=== PATIENT | female | born 1980 | race Caucasian/White ===

== ENCOUNTER 2022-06-12 07:42 | Outpatient (CLI) | payer BC, SELFPAY ==
--- NOTE | ~2022-06-12 | MM_ITS ---
EXAMINATION: MM screening anne BI w chicho HISTORY: Screening TECHNIQUE: Craniocaudal and mediolateral oblique 3-D tomosynthesis images were obtained and synthetic 2-D images were generated. CAD analysis was submitted and interpreted. COMPARISON: No prior mammogram is available for comparison at this institution. BREAST PARENCHYMAL COMPOSITION: The breasts are heterogeneously dense, which may obscure small masses . FINDINGS: There is no evidence of suspicious mass, calcification, or architectural distortion to sugg est malignancy in either breast. There has been no suspicious interval change. IMPRESSION: 1. No mammographic evidence of malignancy. 2. Recommend routine screening mammography in one year. BI-RADS Category 1: Negative Reviewed, dictated and finalized at location A.
== END 2022-06-12 07:43 | disposition home or self-care (01) ==
LOC: ANHIMG 07:44
PROVIDERS: PCP Family Medicine Sports Medicine; Visit Provider Obstetrics & Gynecology
DX: Z12.31 Encounter for screening mammogram for malignant neoplasm of breast (principal)
CPT/HCPCS: 77063; 77067

== ENCOUNTER 2022-11-30 12:50 | Emergency (ER) | payer BC, SELFPAY ==
[2022-11-30 13:00] VITALS: BP 133/78; PULSE 75; RESP 16; TEMP 36.5; O2SAT 100
--- NOTE | 2022-11-30 13:08 | ED.ALLEREA ---
HPI - Allergic Reaction General Chief complaint: Allergic Reaction Stated complaint: BEE STINGS Time Seen by Provider: 11/30/22 13:05 Source: patient Mode of arrival: ambulatory Limitations: no limitations History of Present Illness HPI narrative: 42 y/o female presented for c/o red, warm swollen and itchy insect sting on right inner knee x1 week. States she was stung by about 15 yellow jackets on both ankles, right knee and left arm. Has been taking benadryl and reports significant improvement to all the sites except the knee. States the itching is intense. Denies significant pain or drainage to the knee site. Denies sob, lip swelling, n/v/d/f/c. Related Data Home Medications Medication Instructions Recorded Confirmed bupropion HCl 300 mg 24 hr tablet, 300 mg PO QAM 04/11/22 11/30/22 extended release spironolactone 25 mg tablet 25 mg PO DAILY 04/11/22 11/30/22 Allergies Allergy/AdvReac Type Severity Reaction Status Date / Time adhesive Allergy Mild RASH,REDNES Verified 11/30/22 13:00 S Review of Systems Review of Systems: CONSTITUTIONAL: Denies body aches, fever, chills, or sweats. EYES: Denies visual changes, redness, or discharge. ENT: Denies rhinorrhea, congestion CARDIOVASCULAR: Denies chest pain, palpitations, or edema. RESPIRATORY: Denies cough or dyspnea. GASTROINTESTINAL: Denies abdominal pain, nausea, vomiting, or diarrhea. SKIN: reports insect stings to ankles, right knee MUSCULOSKELETAL: Denies back pain, joint pain, or myalgia. NEUROLOGIC: Denies headache, numbness, tingling, or weakness. [facility] Past Medical History Medical History Abnormal Pap smear of cervix 09/27/15 ascus hpv negative Anxiety Eczema Encounter for IUD insertion 08/02/15 Mirena insertion 08/10/20 Mirena removal/insertion Encounter for IUD removal 08/10/20 Mirena removal/insertion Gestational diabetes History of hysterosalpingogram (06/15/11) Screening mammogram, encounter for Vaginal delivery 2007 no complications 2012 no complications 06/15/15 gestational diabetes Ismael Surgical History Surgical History History of dilation and curettage (05/23/10) hscope d&c--infertility--ck tubes per patient History of hand surgery (~04/2006) Family History Family History Father Hypertension Mother Hypertension Grandparent Diabetes mellitus maternal grandfather maternal grandmother Osteoporosis maternal grandmother Social History Social History Smoking status: Never smoker Alcohol intake: current Substance use: never Living arrangements: with family Occupation/Education: occupation Additional occupation/education comments: CPA Gender identity (if verbalized by the patient): Female Sexual Orientation (if Verbalized by the Patient): Straight or Heterosexual Comments At time of signature, I have reviewed and agree with nursing past medical, surgical, social and family history unless otherwise noted. Please see nursing chart for further information. There is no relevant family history pertinent to the presenting complaint Exam Narrative: GENERAL: Well-appearing HEAD: Normocephalic, atraumatic. EYES: conjunctivae clear, and EOMI. ENT: Mucous membranes moist. Oropharynx without edema, erythema or lesions. NECK: Supple. No lymphadenopathy CHEST: Clear to auscultation. HEART: Regular rate and rhythm. SKIN: Warm, dry. Right medial knee with approx 8cm diameter area of erythema, site is warm, nontender; no fluctuance or streaking. Bilateral ankles with scattered mildly erythematous round areas c/w insect sting as reported; no swelling or tenderness. NEURO: Alert and oriented x3. Course Course Emergency Course: Patient is aware of fabby
== END 2022-11-30 13:19 | disposition home or self-care (01) ==
PROVIDERS: Emergency Provider Nurse Practitioner Family; PCP Family Medicine Sports Medicine
DX: L30.9 Dermatitis, unspecified (principal)
CPT/HCPCS: 99213; G0463

== ENCOUNTER 2023-02-01 10:13 | Emergency (ER) | payer BC, SELFPAY ==
[2023-02-01 10:24] VITALS: BP 127/86; PULSE 84; RESP 16; TEMP 36.8; O2SAT 100
--- NOTE | 2023-02-01 10:25 | ED.URI ---
HPI - URI/Sore Throat General Chief Complaint: Upper Respiratory Infection Stated Complaint: SINUS CONGESTION Time Seen by Provider: 02/01/23 10:26 Source: patient and RN notes reviewed Mode of arrival: ambulatory Limitations: no limitations History of Present Illness HPI Narrative: 42-year-old female presenting for complaint of cough for about 4 weeks, and started with sinus congestion, drainage, and facial pressure for over 1 week. She denies known sick contacts denies shortness of breath, wheezing, nausea, vomiting, fevers chills. She has used multiple [id number]-[id number] medications without significant relief. MD elicited complaint: cough Related Data Home Medications Medication Instructions Recorded Confirmed bupropion HCl 300 mg 24 hr tablet, 300 mg PO QAM 04/11/22 02/01/23 extended release spironolactone 25 mg tablet 25 mg PO DAILY 04/11/22 02/01/23 Allergies Allergy/AdvReac Type Severity Reaction Status Date / Time adhesive Allergy Mild RASH,REDNES Verified 02/01/23 10:21 S Review of Systems Review of Systems: CONSTITUTIONAL: Denies malaise, chills, sweats, fever EYES: Denies visual changes, redness, or discharge ENT: Reports rhinorrhea, congestion, sinus pain, denies otalgia, sore throat CARDIOVASCULAR: Denies chest pain, palpitations, edema RESPIRATORY: Reports cough, post nasal drainage. Denies dyspnea GASTROINTESTINAL: Denies abdominal pain, nausea, vomiting, diarrhea SKIN: Denies rash or itching MUSCULOSKELETAL: Denies myalgia NEUROLOGIC: Reports headache [facility] Past Medical History Medical History Abnormal Pap smear of cervix 09/27/15 ascus hpv negative Anxiety Eczema Encounter for IUD insertion 08/02/15 Mirena insertion 08/10/20 Mirena removal/insertion Encounter for IUD removal 08/10/20 Mirena removal/insertion Gestational diabetes History of hysterosalpingogram (06/15/11) Screening mammogram, encounter for Vaginal delivery 2007 no complications 2012 no complications 06/15/15 gestational diabetes Ismael Surgical History Surgical History History of dilation and curettage (05/23/10) hscope d&c--infertility--ck tubes per patient History of hand surgery (~04/2006) Family History Family History Father Hypertension Mother Hypertension Grandparent Diabetes mellitus maternal grandfather maternal grandmother Osteoporosis maternal grandmother Social History Social History Smoking status: Never smoker Alcohol intake: current Substance use: never Living arrangements: with family 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 HEAD: Normocephalic EYES: PERRLA, conjunctivae clear ENT: Mucous membranes moist. TM pearly anderson with dull light reflex bilaterally; no tragal tenderness. Oropharynx not erythematous without lesions or exudate, no drooling, no hoarseness, no trismus, uvula midline. NECK: Supple. No lymphadenopathy CHEST: Clear to auscultation, breath sounds equal. . HEART: Regular rate and rhythm. No murmur heard. SKIN: Warm, dry, no rash. NEURO: Alert and oriented x3. PSYCH: Normal mood and affect Course Course Emergency Course: Patient is aware of diagnosis, understands and agrees to treatment plan. Anticipatory guidance given. Patient agrees to follow-up as directed and is aware of reasons to seek care at the emergency department. Portions of this record may have been created with voice recognition software Level of Care: Express Care Visit Vital Signs
== END 2023-02-01 10:37 | disposition home or self-care (01) ==
PROVIDERS: Emergency Provider Nurse Practitioner Family; PCP Family Medicine Sports Medicine
DX: J06.9 Acute upper respiratory infection, unspecified (principal); F41.9 Anxiety disorder, unspecified
CPT/HCPCS: 99213; G0463

== ENCOUNTER 2023-08-13 07:13 | Outpatient (CLI) | payer BC, SELFPAY ==
--- NOTE | ~2023-08-13 | MM_ITS ---
EXAMINATION: MM screening anne BI w chicho HISTORY: Screening TECHNIQUE: Craniocaudal and mediolateral oblique 3-D tomosynthesis images were obtained and synthetic 2-D images were generated. CAD analysis was submitted and interpreted. COMPARISON: 06/12/2022 BREAST PARENCHYMAL COMPOSITION: Dense: The breasts are heterogeneously dense, which may obscure small masses FINDINGS: There is no evidence of suspicious mass, calcification, or architectural distortion to sugg est malignancy in either breast. There has been no suspicious interval change. IMPRESSION: 1. No mammographic evidence of malignancy. 2. Recommend routine screening mammography in one year. BI-RADS Category 1: Negative Reviewed, dictated and finalized at location A.
== END 2023-08-13 07:14 | disposition home or self-care (01) ==
LOC: ANHIMG 07:16
PROVIDERS: PCP Family Medicine Sports Medicine; Visit Provider Obstetrics & Gynecology
DX: Z12.31 Encounter for screening mammogram for malignant neoplasm of breast (principal)
CPT/HCPCS: 77063; 77067

== ENCOUNTER 2024-08-14 07:14 | Outpatient (CLI) | payer BC, SELFPAY ==
--- NOTE | ~2024-08-14 | MM_ITS ---
EXAMINATION: MM screening anne BI w chicho HISTORY: Screening TECHNIQUE: Craniocaudal and mediolateral oblique 3-D tomosynthesis images were obtained and synthetic 2-D images were generated. CAD analysis was submitted and interpreted. COMPARISON: Comparison to multiple prior studies sequentially, with oldest reviewed study dated 06/12. BREAST PARENCHYMAL COMPOSITION: Dense: The breasts are heterogeneously dense, which may obscure small masses FINDINGS: There is a new mass in the upper inner quadrant of the right breast, posterior third. Left breast is stable without evidence for malignancy. IMPRESSION: 1. New right breast mass, upper inner quadrant, posterior third. 2. Additional mammographic views and possible breast ultrasound are recommended. BI-RADS Category 0: Incomplete: Needs additional imaging evaluation. Reviewed, dictated and finalized at location B. IMPRESSION: 1. New right breast mass, upper inner quadrant, posterior third. 2. Additional mammographic views and possible breast ultrasound are recommended . BI-RADS Category 0: Incomplete: Needs additional imaging evaluation.
--- OUTSIDE RECORDS SUMMARY | 2024-08-14 07:20 | XMS_ITS | Clinical Summary ---
Author Organization [facility] Address [address] [place] [address] Care Team Providers Care Insole Presser Name Role Phone Lobito Nayak MD Primary Care Provider Source Comments [facility],non-owned Affiliates and Associated Physician Practices is amultiple site organization consisting of ambulatory clinics and hospital sitesin [place], [place], [place] and [place]. This disclosure is being madepursuant to the Care Everywhere program and may not contain all information available regarding this patient. Last updated 17.[facility] Allergies No known active allergies Medications * Be aware that medications may not be up to date on this document. Alwaysverify current medications with the patient. levonorgestrel (MIRENA) 20 MCG/24HR IUD 1 device by Intrauterine route as directed Active Immunizations Immunization Administration Dates Next Due INFLUENZA VACCINE, QUADR. (F LUZONE; FLULAVAL; FLUARIX; AFLURIA QUADRIVALENT; 6MO+), 0.5 ML (IIV4) 12/26/2017 Family History Medical History Relation Name Comments Diabetes - Type 2 Father Hypertension Mother Relation Name Status Comments Father Mother Social History Tobacco Use Types Packs/Day Years Used Date Smoking Tobacco: Never Smokeless Tobacco: Never Comments No Sex and Gender Information Value Date Recorded Sex Assigned at Not on file Legal Sex Female 6:15 PM CDT Gender Identity Not on file Sexual Orientation Not on file Last Filed Vital Signs Vital Sign Reading Time Taken Comments Blood Pressure 122/80 12/18/2017 10:32 AM CDT Pulse 100 12/18/2017 10:32 AM CDT Temperature 36.9 C (98.5 F) 12/18/2017 10:32 AM CDT Respiratory Rate 16 12/18/2017 10:32 AM CDT Oxygen Saturation 99% 12/18/2017 10:32 AM CDT Inhaled Oxygen Concentration - - Weight 86.2 kg (190 lb) 12/18/2017 10:32 AM CDT Height 167.6 cm (5' 6 ) 12/18/2017 10:32 AM CDT Body Mass Index 30.67 12/18/2017 10:32 AM CDT Plan of Treatment Health Maintenance Due Date Last Done Comments LIPID TESTING 1982 MAMMOGRAM 1982 HIV SCREENING 1997 HEPATITIS C SCREENING 05/18/2000 DTAP/TDAP/TD VACCINES (1 - Tdap) 2001 HEPATITIS B VACCINE (1 of 3 - 19+ 3-dose series) 2001 COVID-19 VACCINE ( - 2023-2 5 season) 2023 DEPRESSION SCREENING 03/25/2024 INFLUENZA VACCINE (Season Ended) 2024 12/27/19 18 ZOSTER VACCINE (1 of 2) 2032 HIB VACCINE Aged Out No longer eligi ble based on patient's age to complete this topic HPV VACCINE Aged Out No longer eligi ble based on patient's age to complete this topic MENINGOCOCCAL (Group B) VACC INE SHARED DECISION-MAKING Aged Out No longer eligibl e based on patient's age to complete this topic MENINGOCOCCAL GROUPS A/C/Y/W VACCINE Aged Out No longer eligible b ased on patient's age to complete this topic PNEUMOCOCCAL VACCINE Aged Out No long er eligible based on patient's age to complete this topic Insurance [facility] Care Teams Insole Presser Relationship Specialty Start Date End Date Lobito Nayak MD [address] [place] [address] PCP - General Family Medicine 09/20/17
--- OUTSIDE RECORDS SUMMARY | 2024-08-14 07:20 | XMS_ITS | Referral Summary ---
Author Organization [address] Address [address] [place] [id number] Care Team Providers Care Proof Machine Operator Name Role Phone Korey Biggs MD Primary Care Provider [phone] Encounters Date Type Department Care Team Description 06/01/2024 1:15 PM CDT Procedure visit [facility] Otolaryngology [address] [place] [address] [address] [place] [address] [place] [address] Kati Singh Au.D. Sensorineural hearing loss, bilateral (Primary Dx); Tinnitus, bilateral from Last 3 Months Allergies Active Allergy Reactions Criticality Noted Date Comments Adhesive Itching Low 04/01/2022 Medications buPROPion XL (WELLBUTRIN XL) 300 mg 24 hr tablet Take 300 mg by mouth daily 2 Active levonorgestreL (Mirena) IUD Mirena 20 mcg/24 hours (8 yrs) 52 mg intrauterine device Take 1 device by intrauterine route. Active spironolactone (ALDACTONE) 100 mg tablet Take 100 mg by mouth daily 2 Active predniSONE (DELTASONE) 10 mg tablet Take 5 tabs (50mg) daily for 2 days, then take 4 tabs (40mg) daily for 2 days. Continue to decrease by 1 tab (10mg) every 2 days until gone. 30 tablet 3 Active Active Problems No known active problems Social History Tobacco Use Types Packs/Day Years Used Date Smoking Tobacco: Never Tobacco Cessation:Counseling Given: Not Answered Comments Unknown Sex and Gender Information Value Date Recorded Sex Assigned at Not on file Legal Sex Female 12:37 AM HEAD OF MUSIC Gender Identity Not on file Sexual Orientation Not on file Last Filed Vital Signs Vital Sign Reading Time Taken Comments Blood Pressure 118/84 04/01/2022 9:11 AM HEAD OF MUSIC Pulse 92 04/01/2022 9:11 AM HEAD OF MUSIC Temperature 37.1 C (98.8 F) 04/01/2022 9:11 AM HEAD OF MUSIC Respiratory Rate 16 04/01/2022 9:11 AM HEAD OF MUSIC Oxygen Saturation 97% 04/01/2022 9:11 AM HEAD OF MUSIC Inhaled Oxygen Concentration - - Weight 94.3 kg (208 lb) 04/01/2022 9:11 AM HEAD OF MUSIC Height 167.6 cm (5' 6 ) 04/01/2022 9:11 AM HEAD OF MUSIC Body Mass Index 33.57 04/01/2022 9:11 AM HEAD OF MUSIC Plan of Treatment Not on file Procedures Procedure Name Priority Date/Time Associated Diagnosis Comments AUDBASE RESULTS 06/01/2024 12:58 PM CDT from Last 3 Months Results * AudBase Results (06/01/2024 12:58 PM CDT) Provider Scanning AUDIOLOGY SERVICES ORDERABLES Final Result from Last 3 Months Insurance [employer] [place] [employer] [place] Care Teams Proof Machine Operator Relationship Specialty Start Date End Date Korey Biggs MD [address] [place] [id number] PCP - General Family Medicine 04/01/22
--- OUTSIDE RECORDS SUMMARY | 2024-08-14 07:21 | XMS_ITS | Clinical Summary ---
Author Organization [address] Address [address] [place] [id number] Care Team Providers Care Shackler Name Role Phone Korey Biggs MD Primary Care Provider [phone] Allergies Active Allergy Reactions Criticality Noted Date [...] Active Active Problems No known active problems Encounters Date Type Department Care Team Description 06/01/2024 1:15 PM CDT Procedure visit [facility] Otolaryngology [address] [facility] [address] [place] [address] [place] [phone] Kati Singh Au.D. Sensorineural hearing loss, bilateral (Primary Dx); Tinnitus, bilateral from Last 3 Months Family History Medical History Relation Name Comments Hypertension Father Hypertension; Obesity Father Obesity; Diabetes Maternal Grandfather Diabete s mellitus; Hypertension Mother Hypertension; Obesity Mother Obesity; Relation Name Status Comments Father Maternal Grandfather Mother Social History Tobacco Use Types Packs/Day Years Used Date Smoking Tobacco: Never Tobacco Cessation:Counseling Given: Not Answered Comments Unknown Sex and Gender Information Value Date Recorded Sex Assigned at Not on file Legal Sex Female 12:37 AM DRUM STRAIGHTENER Gender Identity Not on file Sexual Orientation Not on file Obstetrics History Last Filed Vital Signs Vital Sign Reading Time Taken Comments Blood Pressure 118/84 04/01/2022 9:11 AM DRUM STRAIGHTENER Pulse 92 04/01/2022 9:11 AM DRUM STRAIGHTENER Temperature 37.1 C (98.8 F) 04/01/2022 9:11 AM DRUM STRAIGHTENER Respiratory Rate 16 04/01/2022 9:11 AM DRUM STRAIGHTENER Oxygen Saturation 97% 04/01/2022 9:11 AM DRUM STRAIGHTENER Inhaled Oxygen Concentration - - Weight 94.3 kg (208 lb) 04/01/2022 9:11 AM DRUM STRAIGHTENER Height 167.6 cm (5' 6 ) 04/01/2022 9:11 AM DRUM STRAIGHTENER Body Mass Index 33.57 04/01/2022 9:11 AM DRUM STRAIGHTENER Plan of Treatment Health Maintenance Due Date Last Done Comments Breast Cancer Screening-Mammogram 1982 Cervical Cancer Screening 1982 Depression Screening 1982 Hepatitis C Screening 1982 Varicella Vaccines (1 of 2 - 13+ 2-dose series) 05/24/1995 Hepatitis B Screening 2000 Regular Well Visit/Exam 18-64 2000 Covid-19 Vaccine ( - 2023-2 5 season) 2023 02/20/2021, 05/30/2020, 05/02/2020 Influenza Vaccine (Season Ended) 2024 01/11/2022, 12/26/2017, 01/11/2014 DTaP/Tdap/Td Vaccine (2 - Td or Tdap) 06/15/2025 06/16/2015 HPV Vaccines Aged Out No longer eligi ble based on patient's age to complete this topic Pneumococcal vaccine <65 Aged Out No longer eligible based on patient's age to complete this topic Procedures Procedure Name Priority Date/Time Associated Diagnosis Comments AUDBASE RESULTS 06/01/2024 12:58 PM CDT from Last 3 Months Results * AudBase Results (06/01/2024 12:58 PM CDT) Provider Scanning AUDIOLOGY SERVICES ORDERABLES Final Result from Last 3 Months Insurance [employer] [place] [employer] [place] [employer] [place] Care Teams Shackler Relationship Specialty Start Date End Date Korey Biggs MD [facility] [place] [address] PCP - General Family Medicine 04/01/22
== END 2024-08-14 07:15 | disposition home or self-care (01) ==
LOC: ANHIMG 07:15
PROVIDERS: PCP Family Medicine; Visit Provider Obstetrics & Gynecology
DX: Z12.31 Encounter for screening mammogram for malignant neoplasm of breast (principal); R92.8 Other abnormal and inconclusive findings on diagnostic imaging of breast
CPT/HCPCS: 77063; 77067

== ENCOUNTER 2024-09-04 08:39 | Outpatient (CLI) | payer BC, SELFPAY ==
--- NOTE | ~2024-09-04 | MMUS_ITS ---
EXAMINATION: US breast RT complete, MM diagnostic anne RT w chicho HISTORY: Follow-up right breast asymmetries TECHNIQUE: Additional 3-D tomosynthesis images of the right breast were performed and synthetic 2-D i mages were generated. CAD analysis was submitted and interpreted. High resolution complete right noreen st ultrasound was performed. COMPARISON: Comparison to multiple prior studies sequentially, with oldest reviewed study dated 06/12. BREAST PARENCHYMAL COMPOSITION: Dense: The breasts are heterogeneously dense, which may obscure small masses FINDINGS: MAMMOGRAPHIC FINDINGS: Focal areas of asymmetry seen on prior examination are less dense with spot compression and mediolate ral views. There is persistent focal asymmetry superiorly in the right breast on mediolateral view, p osterior third. ULTRASOUND: Complete US of all 4 quadrants of the right breast/s and retroareolar region was reviewed. Mildly pro minent ducts noted in one o'clock, 8 cm from the nipple. At 2:00, 4 cm from the nipple there is an ov al hypoechoic mass with internal punctate cysts, likely benign cluster of microcysts measuring 8 mm g reatest dimension. At 9:00, 3.5 cm from the nipple there is an ill-defined hypoechoic 6 month follow- up Limited right breast ultrasound recommended to assess stability. Mass measuring 11 x 7 mm. No defi nite mammographic correlate.There is no significant internal vascularity. There is posterior shadowin g. IMPRESSION: 1. Irregular shaped hypoechoic right breast mass at 9:00, 3.5 cm from the nipple with areas of borderer ior shadowing. Ultrasound-guided right breast biopsy recommended. 2. Probable benign cluster of microcysts at 2:00, 4 cm from the nipple. Limited right breast ultrasou nd and 6 months recommended to assess stability. BI-RADS category 4, suspicious findings. Reviewed, dictated and finalized at location [] IMPRESSION: 1. Irregular shaped hypoechoic right breast mass at 9:00, 3.5 cm from the nippl e with areas of posterior shadowing. Ultrasound-guided right breast biopsy bouchra mmended. 2. Probable benign cluster of microcysts at 2:00, 4 cm from the nipple. Limited right breast ultrasound and 6 months recommended to assess stability. BI-RADS category 4, suspicious findings.
== END 2024-09-04 08:40 | disposition home or self-care (01) ==
PROVIDERS: PCP Family Medicine; Visit Provider Obstetrics & Gynecology
DX: N63.10 Unspecified lump in the right breast, unspecified quadrant (principal); R92.8 Other abnormal and inconclusive findings on diagnostic imaging of breast
CPT/HCPCS: 76641; 77061; 77065; G0279

== ENCOUNTER 2024-09-23 08:06 | Outpatient (CLI) | payer BC, SELFPAY ==
--- NOTE | ~2024-09-23 | MMUS_ITS ---
EXAMINATION: MM post biopsy diagnostic RT, US breast biopsy RT w image DATE: 09/23/2024 09:56 (accession [id number]), 09/23/2024 11:01 (accession [id number]) INDICATION: Irregular hypoechoic right breast mass at 9:00, 3.5 cm from the nipple with areas of post erior echogenic shadowing. BREAST PARENCHYMAL COMPOSITION:Scattered fibroglandular pattern TECHNIQUE: The procedure including the risks, benefits, and alternatives was discussed with the patie nt. Risks discussed included bleeding and infection. The patient understood the risks and agreed to proceed. The skin overlying the upper outer quadrant of the right breast was prepped and draped in usual steri le fashion. Anesthetic was administered with 1% lidocaine subcutaneously. Limited ultrasound examination of the right breast was then again performed. At the 9:00 position of the right breast approximately 3.5 cm from the nipple is a mostly well-circum scribed focus of decreased echogenicity measuring 6.5 x 6.3 x 10.8 mm, suitable for biopsy. A 9 G vacuum-assisted biopsy device was placed using continuous ultrasound guidance beneath the abnor mality at the 9:00 position. The vacuum-assisted device was utilized to obtain 5 samples. The 10-gauge biopsy device was removed, leaving the [address] Through the introducer, a butterfly marker was placed. All devices were then removed, and a sterile dressing applied. There were no immediate complications. Post biopsy mammography was then performed in both the CC and MLO positions demonstrating a butterfly microclip in the upper outer quadrant of the right breast without a significant perilesional hematom a. IMPRESSION: 1. Technically successful ultrasound-guided vacuum-assisted core biopsy of an indeterminate focus at the 9:00 position of the right breast, as detailed above with post biopsy mammography to confirm micr oclip placement. Pathology pending Reviewed, dictated and finalized at location A. IMPRESSION: 1. Technically successful ultrasound-guided vacuum-assisted core biopsy of an i ndeterminate focus at the 9:00 position of the right breast, as detailed above with post biopsy mammography to confirm microclip placement. Pathology pending
--- OUTSIDE RECORDS SUMMARY | 2024-09-23 08:14 | XMS_ITS | Referral Summary ---
Author Organization [address] Address [address] [place] [phone] Care Team Providers Care Emergency Manager Name Role Phone Korey Biggs MD Primary Care Provider [phone] Encounters Date Type Department Care Team Description 08/28/2024 Documentation [facility] Otolaryngology [address] [place] [address] [address] [place] [address] [place] [phone] Keily Beckford Hearing Aid Evaluation 08/28/2024 9:15 AM CDT Procedure visit [facility] Otolaryngology [address] [place] [address] [address] [place] [address] [place] [phone] Carlene King Au.D. Sensorineural hearing loss, bilateral (Primary Dx) 08/28/2024 8:40 AM CDT Office Visit [facility] ENT [address] [address] [place] [address] [place] [address] Leonel Dozier MD Sensorineural hearing loss, bilateral (Primary Dx); Tinnitus of both ears from Last 3 Months Allergies Active Allergy [...] gone. 30 tablet 3 Active Active Problems Problem Noted Date Diagnosed Date Tinnitus of both ears 08/28/2024 Sensorineural hearing loss, bilateral 08/28/2024 Social History Tobacco Use Types Packs/Day Years Used Date Smoking Tobacco: Never Tobacco Cessation:Counseling Given: Not Answered AUDIT-C Answer Date Recorded Q1: How often do you have a drink containing alc ohol? Never 08/28/2024 Average Number of Drinks Not on file 025 Frequency of Binge Drinking Not on file 08/2024 Comments Unknown Sex and Gender Information Value Date Recorded Sex Assigned at Not on file Legal Sex Female 12:37 AM SPECIAL SERVICES SUPERVISOR Gender Identity Not on file Sexual Orientation Not on file Last Filed Vital Signs Vital Sign Reading Time Taken Comments Blood Pressure 128/84 08/28/2024 9:07 AM CDT Pulse 92 04/01/2022 9:11 AM SPECIAL SERVICES SUPERVISOR Temperature 37.1 C (98.8 F) 04/01/2022 9:11 AM SPECIAL SERVICES SUPERVISOR Respiratory Rate 16 04/01/2022 9:11 AM SPECIAL SERVICES SUPERVISOR Oxygen Saturation 99% 08/28/2024 9:07 AM CDT Inhaled Oxygen Concentration - - Weight 100.8 kg (222 lb 3.2 oz) 08/28/2024 9:07 AM CDT Height 167.6 cm (5' 5.98) 08/28/2024 9:07 AM CD T Body Mass Index 35.88 08/28/2024 9:07 AM CDT Plan of Treatment Not on file Insurance COUNT INCLUDES THE [facility] [employer] [place] [employer] [place] Care Teams Emergency Manager Relationship Specialty Start Date End Date Korey Biggs MD [address] [place] [address], [place] [address] PCP - General Family Medicine 04/01/22
--- OUTSIDE RECORDS SUMMARY | 2024-09-23 08:14 | XMS_ITS | Clinical Summary ---
Author Organization [address] Address [address] [place] [id number] Care Team Providers Care Manager Client Service Name Role Phone Korey Biggs MD Primary Care Provider [phone] Allergies Active Allergy Reactions Criticality Noted Date [...] ears 08/28/2024 Sensorineural hearing loss, bilateral 08/28/2024 Encounters Date Type Department Care Team Description 08/28/2024 9:15 AM CDT Procedure visit [facility] Otolaryngology [address] [place] [address] [address] [place] [address] [place] [address] Carlene King Au.D. Sensorineural hearing loss, bilateral (Primary Dx) 08/28/2024 8:40 AM CDT Office Visit [facility]) - [facility] ENT [address] [place] [address] [place] [address] Leonel Dozier MD Sensorineural hearing loss, bilateral (Primary Dx); Tinnitus of both ears 08/28/2024 Documentation [facility] Otolaryngology [address] [place] [address] [place] [address] Keily Beckford Hearing Aid Evaluation from Last 3 Months Family History Medical [...] on file Legal Sex Female 12:37 AM BUSINESS SERVICES REPRESENTATIVE Gender Identity Not on file Sexual Orientation Not on file Obstetrics History Last Filed Vital Signs Vital Sign Reading Time Taken Comments Blood Pressure 128/84 08/28/2024 9:07 AM CDT Pulse 92 04/01/2022 9:11 AM BUSINESS SERVICES REPRESENTATIVE Temperature 37.1 C (98.8 F) 04/01/2022 9:11 AM BUSINESS SERVICES REPRESENTATIVE Respiratory Rate 16 04/01/2022 9:11 AM BUSINESS SERVICES REPRESENTATIVE Oxygen Saturation 99% 08/28/2024 9:07 AM CDT Inhaled Oxygen Concentration - - Weight 100.8 kg (222 lb 3.2 oz) 08/28/2024 9:07 AM CDT Height 167.6 cm (5' 5.98) 08/28/2024 9:07 AM CD T Body Mass Index 35.88 08/28/2024 9:07 AM CDT Plan of Treatment Health Maintenance Due Date Last Done Comments Breast Cancer Screening-Mammogram 1982 Cervical Cancer Screening 1982 Depression Screening 1982 Hepatitis C Screening 1982 Varicella Vaccines (1 of 2 - 13+ 2-dose series) 05/24/1995 Hepatitis B Screening 2000 Regular Well Visit/Exam 18-64 2000 Covid-19 Vaccine (2023-2 5 season) 2023 02/20/2021, 05/30/2020, 05/02/2020 Influenza Vaccine (Season Ended) 2024 01/11/2022, 12/26/2017, 01/11/2014 DTaP/Tdap/Td Vaccine (2 - Td or Tdap) 06/15/2025 06/16/2015 HPV Vaccines Aged Out No longer eligi ble based on patient's age to complete this topic Pneumococcal vaccine <65 Aged Out No longer eligible based on patient's age to complete this topic Insurance [employer] [place] [facility] Care Teams Manager Client Service Relationship Specialty Start Date End Date Korey Biggs MD [address] [place], [place] [id number] PCP - General Family Medicine 04/01/22
--- OUTSIDE RECORDS SUMMARY | 2024-09-23 08:14 | XMS_ITS | Clinical Summary ---
Author Organization [facility] [employer] Address [address] [place] [address] Care Team Providers Care Quill Skinner Name Role Phone Lobito Nayak MD Primary Care Provider [phone] Source Comments [facility] [employer],non-owned Affiliates and Associated Physician Practices is amultiple site organization consisting of ambulatory clinics and hospital sitesin [place], [place], [place] and [place]. This disclosure is being madepursuant to the Care Everywhere program and may not contain all information available regarding this patient. Last updated 17.[facility] [employer] Allergies No known active allergies Medications * [...] 10:32 AM CDT Height 167.6 cm (5' 6) 12/18/2017 10:32 AM CDT Body Mass Index [...] season) 2023 DEPRESSION SCREENING 03/25/2024 INFLUENZA VACCINE (#1) 2024 12/26/2017 ZOSTER VACCINE (1 of 2) 2032 HIB [...] patient's age to complete this topic Insurance [facility] Care Teams Quill Skinner Relationship Specialty Start Date End Date Lobito Nayak MD [address] [place] [address] PCP - General Family Medicine 09/20/17
--- NOTE | 2024-09-23 10:58 | S_PTH ---
PATIENT: Katie Traore LOC: [facility] U#:[id number] AGE/SX: 44/F ROOM: RE09/23/[address]: Adelina Rucker MD : 1980 BED: DIS: 09/23/2024 SPEC #: [id number] RECD: 09/23/24 13:51 STATUS: JUANY RESiena #: [id number] ARIS: 09/23/24 10:[address]: Adelina Rucker DEPT: [facility] Surgical RECD BY: Abiola Crowley ENTERED: 09/23/24 13:52 SP TYPE: Surgical OTHR DR: Lobito Nayak, Tissues: A - Breast Biopsy Procedures: Hematoxylin and Eosin Stain Gross and Microscopic Level 4
== END 2024-09-23 08:07 | disposition home or self-care (01) ==
PROVIDERS: PCP Family Medicine; Visit Provider Surgery
DX: R92.8 Other abnormal and inconclusive findings on diagnostic imaging of breast (principal)
CPT/HCPCS: 19083; 77065; 88305; A4648

== ENCOUNTER 2025-03-20 08:45 | Emergency (ER) | payer BC, SELFPAY ==
[2025-03-20 09:04] VITALS: BP 134/93; PULSE 94; RESP 16; TEMP 36.3; O2SAT 99
--- NOTE | 2025-03-20 09:27 | ED.URI ---
HPI - URI/Sore Throat General Chief Complaint: Upper Respiratory Infection Stated Complaint: URI Symptoms Time Seen by Provider: 03/20/25 09:27 Source: patient and RN notes reviewed Mode of arrival: ambulatory Limitations: no limitations History of Present Illness HPI Narrative: 44-year-old female presented for complaint of headache, sinus pressure/congestion, cough, fever/chills. onset 3 days. Says cough was forceful this morning which induced vomiting. Taking Mucinex DM. Denies sob, wheezing, n/v/d. MD elicited complaint: cough Related Data Home Medications ?Medication ?Instructions ?Recorded ?Confirmed ?Last Taken ?Type spironolactone 25 mg tablet 100 mg PO DAILY 09/10/24 03/20/25 Unknown History spironolactone 100 mg tablet mg 03/20/25 Unknown History Allergies Allergy/AdvReac Type Severity Reaction Status Date / Time adhesive Allergy Mild RASH,REDNES Verified 03/20/25 08:59 S Review of Systems Review of Systems: per HPI [facility] Past Medical History Medical History Breast mass, right Screening mammogram, encounter for Vaginal delivery 2007 no complications 2012 no complications 06/15/15 gestational diabetes Ismael Encounter for IUD removal 08/10/20 Mirena removal/insertion Encounter for IUD insertion 08/02/15 Mirena insertion 08/10/20 Mirena removal/insertion History of hysterosalpingogram (06/15/11) Eczema Anxiety Gestational diabetes Abnormal Pap smear of cervix 09/27/15 ascus hpv negative Surgical History Surgical History History of dilation and curettage (05/23/10) hscope d&c--infertility--ck tubes per patient History of hand surgery (~04/2006) Family History Family History Father Hypertension Mother Hypertension Grandparent Diabetes mellitus maternal grandfather maternal grandmother Osteoporosis maternal grandmother Social History Social History Smoking status: Never smoker Second hand tobacco smoke exposure: No Alcohol intake: current Alcohol use details: 1 a month Substance use: never Substance use type: does not use Lack of Transportation: No Lack of Food: Never True Current Housing: I Have Housing Concerned About Future Housing: No Difficulty Paying Gas/Electric Bills: No Difficulty Paying for Meds: No Currently Unemployed: No Education: Master's Degree or Higher Difficulty w/ Childcare or Family Care: No Living arrangements: with family Additional living arrangements comments: Occupation/Education: occupation Additional occupation/education comments: CPA Gender identity (if verbalized by the patient): Female Sexual Orientation (if Verbalized by the Patient): Straight or Heterosexual Exam Narrative: GENERAL: mildly Ill-appearing, nontoxic no acute distress. EYES: conjunctivae clear ENT: Mucous membranes moist. TMs pearly anderson with dull light reflex bilaterally; no tragal tenderness. Oropharynx not erythematous without lesions or exudate, no drooling, no hoarseness, no trismus, uvula midline. No tripod positioning, muffled voice, soft palate or pharyngeal wall bulging NECK: Supple. No lymphadenopathy CHEST: Clear to auscultation, breath sounds equal. No wheezing, rhonchi, rales, or stridor. No respiratory distress, speaks in full sentences. HEART: Regular rate and rhythm. No murmur heard. SKIN: Warm, dry, no rash. NEURO: Alert and oriented x3. PSYCH: Normal mood and affect Course Course Level of Care: Express Care Visit Vital Signs Vital signs: Vital Signs Temperature 97.4 F L 03/20/25 09:04 Pulse Rate 94 03/20/25 09:04 Respiratory Rate 16 03/20/25 09:04 Blood Pressure 134/93 H 03/20/25 09:04 Pulse Oximetry 99 03/20/25 09:04 Temperature 97.4 F L 03/20/25 09:04 Pulse Rate 94 03/20/25 09:04 Respiratory Rate 16 03/20/25 09:04 Blood Pressure 134/93 H 03/20/25 09:04 Pulse Oximetry 99 03/20/25 09:04 [facility] MDM Narrative Medical decision making narrative: positive flu. Discussed risks and benefits of Tamiflu and patient is agreeable at this time. Discussed physical exam findings. Advised supportive measures and signs/symptoms to go to the ER. Pt is appropriate for outpt treatment and f/u. Differential Diagnosis Differential Diagnosis: Influenza, covid, sinusitis, OM, strep pharyngitis, URI Discharge Plan Discharge Clinical Impression: Influenza Patient Disposition: Home Condition: Stable Instructions: Influenza (ED) Additional Instructions: Influenza positive You should avoid crowds until you are fever free for 24 hours without the use of fever reducing medications, or the symptoms are improved Rest. Drink plenty of fluids. Tylenol 1000mg every 8 hours as needed for pain/fever Recommend Flonase spray and Zyrtec (or Claritin/Cony) for sinus pressure/congestion over the counter Cough syrup may cause drowsiness; avoid driving or take it at night time. *Tamiflu - most common side effects include nausea, vomiting, and headache. Follow up with your primary care provider as needed in 1 week Go to the ER for worsening symptoms or concerns Patient Language: Upper Sorbian Prescriptions: New oseltamivir [Tamiflu] 75 mg capsule 75 mg PO Q12H 5 Days Qty: 10 0RF No Action spironolactone 100 mg tablet spironolactone 25 mg tablet 100 mg PO DAILY Follow-up/Referrals: Malini,Lobito Reyes MD [Primary Care Provider, Unknown] Time of Disposition: 09:33
[2025-03-20 09:31] LABS: EDCOVIDSCREEN Negative (Negative); EDINFLUASCREEN Negative (Negative); EDINFLUBSCREEN Positive (Negative)
== END 2025-03-20 09:37 | disposition home or self-care (01) ==
PROVIDERS: Emergency Provider Nurse Practitioner Family; PCP Family Medicine
DX: J10.1 Influenza due to other identified influenza virus with other respiratory manifestations (principal); Z20.822 Contact with and (suspected) exposure to COVID-19
CPT/HCPCS: 87426; 87804; 99213; G0463